=== PATIENT | female | born 1950 | race Caucasian/White ===

== ENCOUNTER 2017-01-31 11:10 | Emergency (ER) | payer BC ==
[2017-01-31] MEDS ORDERED: Ketorolac 60 MG/2 ML SDV IM ONE (11:41)
--- NOTE | 2017-01-31 12:18 | EDM.PDOC ---
ED HPI GENERAL MEDICAL PROBLEM - General Chief Complaint: Lower Extremity Injury/Pain Stated Complaint: LEG PAIN Time Seen by Provider: 01/31/17 11:40 Source of Information: Reports: Patient History Limitations: Reports: No Limitations - History of Present Illness INITIAL COMMENTS - FREE TEXT/NARRATIVE: History of present illness: [67 rolled female presenting with complaints of right-sided hip pain radiating down into her leg. Patient has a known history of osteoarthritis and inflammatory issues] Review of systems: As per history of present illness and below otherwise all systems reviewed and negative. Past medical history: As per history of present illness and as reviewed below otherwise noncontributory. Surgical history: As per history of present illness and as reviewed below otherwise noncontributory. Social history: No reported history of drug or alcohol abuse. Family history: As per history of present illness and as reviewed below otherwise noncontributory. Physical exam: HEENT: Atraumatic, normocephalic, pupils reactive, negative for conjunctival pallor or scleral icterus, mucous membranes moist, throat clear, neck supple, nontender, trachea midline. Lungs: Clear to auscultation, breath sounds equal bilaterally, chest nontender. Heart: S1S2, regular, negative for clicks, rubs, or JVD. Abdomen: Soft, nondistended, nontender. Negative for masses or hepatosplenomegaly. Negative for costovertebral tenderness. Pelvis: Stable nontender. Genitourinary: Deferred. Rectal: Deferred. Extremities: Atraumatic, negative for cords or calf pain. Neurovascular unremarkable. Piriformis point tenderness as well as IT band tightness with some palpable spasm Neuro: Awake, alert, oriented. Cranial nerves II through XII unremarkable. Cerebellum unremarkable. Motor and sensory unremarkable throughout. Exam nonfocal. Patient able to identify areas that are painful and easily identified by palpation. Demonstrated gentle stretching to assist in addressing the pain. Diagnostics: [] Therapeutics: [Norflex, Toradol] Impression: [IT band, piriformis pain] Plan: [Norflex, meloxicam] Definitive disposition and diagnosis as appropriate pending reevaluation and review of above. right leg Pain Score (Numeric/FACES): 7 - Related Data Allergies Allergy/AdvReac Type Severity Reaction Status Date / Time No Known Allergies Allergy Verified 01/31/17 11:18 Home Meds: Home Meds Temazepam [Restoril] 30 mg PO BEDTIME 06/18/14 [History] Meloxicam 7.5 mg PO BID #30 tablet 01/31/17 [Rx] Orphenadrine [Norflex] 100 mg PO BID #28 tab.er 01/31/17 [Rx] Past Medical History Musculoskeletal History: Reports: Osteoporosis - Past Surgical History Female Surgical History: Reports: Breast Implant, Section Social & Family History - Family History Family Medical History: Noncontributory - Tobacco Use Smoking Status *Q: Current Every Day Smoker Years of Tobacco use: 10 Packs/Tins Daily: 1 - Caffeine Use Caffeine Use: Reports: Coffee - Alcohol Use Days Per Week of Alcohol Use: 0 Number of Drinks Per Day: 0 Total Drinks Per Week: 0 - Recreational Drug Use Recreational Drug Use: No Drug Use in Last 12 Months: No Review of Systems - Review of Systems Review Of Systems: See Below (See history of present illness) ED EXAM, GENERAL - Physical Exam Exam: See Below (See history of present illness) Course - Vital Signs Last Recorded V/S: Last Vital Signs Temp 36.3 C 01/31/17 11:19 Pulse 84 01/31/17 11:19 Resp 18 01/31/17 11:19 BP 150/75 H 01/31/17 11:19 Pulse Ox 97 01/31/17 11:19 - Orders/Labs/Meds Meds: Medications Discontinued Medications Generic Name Dose Route Start Last Admin Trade Name Freq PRN Reason Stop Dose Admin Ketorolac Tromethamine 60 mg 01/31/17 11:41 01/31/17 11:59 Toradol IM 01/31/17 11:42 60 mg ONETIME ONE Administration Orphenadrine Citrate 60 mg 01/31/17 11:45 01/31/17 11:57 Norflex IM 01/31/17 11:46 60 mg ONETIME ONE Administration Departure - Departure Time of Disposition: 12:19 Disposition: Home, Self-Care 01 Condition: Good Clinical Impression: Iliotibial band syndrome, Piriformis muscle pain - Discharge Information Prescriptions: Meloxicam 7.5 mg PO BID #30 tablet Orphenadrine [Norflex] 100 mg PO BID #28 tab.er Forms: ED Department Discharge Additional Instructions: The following information is given to patients seen in the emergency department who are being discharged to home. This information is to outline your options for follow-up care. We provide all patients seen in our emergency department with a follow-up referral. The need for follow-up, as well as the timing and circumstances, are variable depending upon the specifics of your emergency department visit. If you don't have a primary care physician on staff, we will provide you with a referral. We always advise you to contact your personal physician following an emergency department visit to inform them of the circumstance of the visit and for follow-up with them and/or the need for any referrals to a consulting specialist. The emergency department will also refer you to a specialist when appropriate. This referral assures that you have the opportunity for follow-up care with a specialist. All of these measure are taken in an effort to provide you with optimal care, which includes your follow-up. Under all circumstances we always encourage you to contact your private physician who remains a resource for coordinating your care. When calling for follow-up care, please make the office aware that this follow-up is from your recent emergency room visit. If for any reason you are refused follow-up, please contact the [facility] Emergency Department at and asked to speak to the emergency department charge nurse. Take medication as directed Follow-up with PCP 1-2 days Return to ED as needed as discussed
[2017-01-31 12:39] VITALS: BP 130/73
== END 2017-01-31 12:30 | disposition home or self-care (01) ==
LOC: MW.ED 11:10
DX: M76.31 Iliotibial band syndrome, right leg (principal); F17.210 Nicotine dependence, cigarettes, uncomplicated
CPT/HCPCS: 96372; 99283; J1885; J2360

== ENCOUNTER 2020-04-15 07:33 | Day surgery (SDC) | payer MEDICARE, BC ==
[~2020-04-15 07:33] MED LIST: Lactated Ringers 1,000 ML IV SCH
[2020-04-15] MEDS ORDERED: Propofol 200 MG/20 ML SDV ONE (08:04)
[2020-04-15] MEDS ORDERED: Midazolam 1 MG/ML 2 ML SDV ONE (08:04)
[2020-04-15] MEDS ORDERED: fentaNYL 100 MCG/2 ML SDV ONE (08:04)
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
--- NOTE | 2020-04-15 10:37 | PCM.OPNOTE ---
- General Post-Op/Procedure Note Date of Surgery/Procedure: 04/15/20 Operative Procedure(s): egd w bx. colonoscopy w bx Findings: see [id number] Pre Op Diagnosis: abd pain and change in bowel habits Post-Op Diagnosis: Same Anesthesia Technique: Moderate Sedation Primary Surgeon: Merlin Webb Pathology: egd x colon random bx colon polyp at rectum 2 mm sessile, Complications: None Condition: Good
--- NOTE | 2020-04-15 11:05 | PCM.POSTAN ---
POST ANESTHESIA ASSESSMENT - MENTAL STATUS Mental Status: Alert, Oriented - VITAL SIGNS Vital Signs: Last Vital Signs Temp 36.4 C 04/15/20 08:11 Pulse 69 04/15/20 10:44 Resp 13 04/15/20 10:44 BP 111/64 04/15/20 10:44 Pulse Ox 92 L 04/15/20 10:44 - RESPIRATORY Respiratory Status: Respiratory Rate WNL, Airway Patent, O2 Saturation Stable - CARDIOVASCULAR CV Status: Pulse Rate WNL, Blood Pressure Stable - GASTROINTESTINAL GI Status: No Symptoms - PAIN Pain Score: 0 - POST OP HYDRATION Hydration Status: Adequate & Stable - OBSERVATIONS Free Text/Narrative:: No anesthesia problems
--- NOTE | 2020-04-15 11:05 | PCM48HPAN ---
Post Anesthesia Note - EVALUATION WITHIN 48HRS OF ANESTHETIC Vital Signs in Normal Range: Yes Patient Participated in Evaluation: Yes Respiratory Function Stable: Yes Airway Patent: Yes Cardiovascular Function Stable: Yes Hydration Status Stable: Yes Pain Control Satisfactory: Yes Nausea and Vomiting Control Satisfactory: Yes Mental Status Recovered: Yes Vital Signs: Last Vital Signs Temp 36.4 C 04/15/20 08:11 Pulse 69 04/15/20 10:44 Resp 13 04/15/20 10:44 BP 111/64 04/15/20 10:44 Pulse Ox 92 L 04/15/20 10:44 - COMMENTS/OBSERVATIONS Free Text/Narrative:: No anesthesia problems
[2020-04-15 11:23] VITALS: BP 114/64; PULSE 70
--- NOTE | 2020-04-15 13:04 | OR ---
SURGEON: Merlin Webb MD DATE OF PROCEDURE: 04/15/2020 PREOPERATIVE DIAGNOSES: Abdominal pain and change in bowel habit. POSTOPERATIVE DIAGNOSES: Abdominal pain and change in bowel habit. PROCEDURES PERFORMED: Esophagogastroduodenoscopy with biopsy and colonoscopy with biopsy. PROCEDURE PERFORMED: Colonoscopy. DESCRIPTION OF PROCEDURE: EGD: The patient was taken to the endoscopy room, and with the CONFERENCE ORGANIZER, Diprivan was administered. A well-lubricated EGD scope was gently inserted through the oropharynx, down the esophagus, passing through the gastroesophageal junction, into the stomach. The mucosa was examined upon the passage. Any etiology will be noted. Once in the stomach, we continued to advance to the distal antrum, passed through the pylorus into the second portion of the duodenum. Again, the mucosa was examined for any abnormality and etiology. The scope was then retrieved back to the stomach and then retroflexed to look at the fundus of the stomach. If a biopsy was indicated, we will biopsy the antrum, body, and gastroesophageal junction. The air will be sucked out while the scope is retrieved to reduce the patient's discomfort. DESCRIPTION OF PROCEDURE: Colonoscopy: The patient was taken to the endoscopy room. A time out was called, patient identified, and procedure identified. Diprivan was then administrated. Patient went from awake to sleep, hearing doctor talking or door closing is normal. Perineum inspection and digital examination were then performed. A well- lubricated colonoscope was gently inserted through the rectum, advanced past the rectosigmoid junction, the descending colon, splenic flexure, transverse colon, hepatic flexure, ascending colon, arrived to the cecum. Cecum was identified as dictated in the finding. Then the scope was carefully withdrawn while attention was paid to the mucosal surface for any abnormality. abnormaoity or polyp will be biopsyed w cold biopsy forceps; Air will be sucked out during the scope withdrawal. At the rectum, retroflexed to examine any rectal diseases, fistula or hemorrhoids. Patient tolerated procedure well. There were no intraoperative complications, and Dr. Webb was present throughout the whole procedure. FINDINGS: EGD findings: 1. The patient is easily sedated with CONFERENCE ORGANIZER and Diprivan, the patient is soundly snoring. 2. Proximal esophagus and oropharynx are free of disease, stricture, inflammation, none of those. Distal esophagus at GE junction at 40 shows mild salmon-colored change, consistent with acid reflux and mild. Rugae are normal in appearance. Antrum is fine and duodenum is grossly normal. Retroflexed look at the fundus of the stomach, the patient has hiatal hernia. Biopsy done at antrum, body, GE junction at 40 and sucked out the gas while scope pulling out. During the whole study, there is no blood, ulcer, or food particle or bile observed. Colonoscopy findings: 1. The patient is easily sedated with CONFERENCE ORGANIZER and Diprivan, the patient is soundly snoring. 2. Bowel prep is excellent, very little liquid stool, no semi-formed stool. 3. Colon is rather straightforward, and the patient's colon is very short. Cecum is at distance of 80 indicated by ileocecal fold, one-to-one indentation, and appendiceal orifice. ScopeGuide is pointing south. Mucosa was examined upon scope pulling out. The patient has one diverticulum next to the appendix opening in the cecum in the right side and no inflammation or stricture suggestive of diverticulitis. Other than that, the patient has a tiny polyp at the rectum, like 2 mm, clinically insignificant, cold biopsy removed anyway. Random biopsy of the colon performed for abdominal pain. The patient has external hemorrhoid and internal hemorrhoid. The patient would benefit from repeat colonoscopy in 10 years from today or case by case as the patient is 70 years old or depends on the pathology of the polyp. SANTIAGO / TYSON /[id number] MTDD
== END 2020-04-15 11:10 | disposition home or self-care (01) ==
LOC: MW.SDS 07:33
PROVIDERS: ATTEND Surgery
DX: K63.5 Polyp of colon (principal); K29.50 Unspecified chronic gastritis without bleeding; K20.9 Esophagitis, unspecified; K64.4 Residual hemorrhoidal skin tags; K64.8 Other hemorrhoids; K57.30 Diverticulosis of large intestine without perforation or abscess without bleeding; K44.9 Diaphragmatic hernia without obstruction or gangrene; F41.9 Anxiety disorder, unspecified; F17.210 Nicotine dependence, cigarettes, uncomplicated; E78.5 Hyperlipidemia, unspecified; Z79.899 Other long term (current) drug therapy
CPT/HCPCS: 00813; 88305; 88312; J2001; J2250; J2704; J3010; J7120